=== PATIENT | female | born 1940 ===

== ENCOUNTER → 2021-12-31 | Outpatient (CLI) | payer MEDICARE ==
[2021-12-31] VITALS (10 sets, daily range): BP systolic 92–128; BP diastolic 54–72; PULSE 72–90; TEMP 98
[~2021-12-31] VITALS: Ht 170.2 cm; Wt 39.1 kg
[~2021-12-31] MED LIST: BROVANA15 MCG/2 M IH; PREDNISONE20 MG PO; PULMICORT0.25 MG/2 IH; TENORMIN 5050 MG/TAB PO; YUPELRI175 MCG/3 IH
== END ==
LOC: COL.RAD 09:00
DX: J98.59 Other diseases of mediastinum, not elsewhere classified (principal)
CPT/HCPCS: 32108